=== PATIENT | male | born 1960 | race African-American/Black ===

== ENCOUNTER 2019-11-17 14:30 | Emergency (ER) | payer BC, SELFPAY ==
[2019-11-17 14:35] VITALS: BP 142/77; PULSE 82; RESP 18; TEMP 36.8; O2SAT 99
[2019-11-17 16:10] VITALS: PULSE 89; RESP 18
[2019-11-17] MEDS: ALBUTEROL SULFATE NEB 2.5 MG/0.5 ML INH 5 MG INHALATION (16:10)
[2019-11-17] MEDS: IPRATROPIUM BR 0.02% INH SOLN 0.5 MG/2.5 ML VIAL INHALATION (16:11)
[2019-11-17 16:17] VITALS: PULSE 90; RESP 18
--- NOTE | 2019-11-17 16:27 | ED.URI ---
HPI - URI/Sore Throat General Chief Complaint: Upper Respiratory Infection Stated Complaint: cold sx's Time Seen by Provider: 11/17/19 15:39 Source: patient Mode of arrival: ambulatory Limitations: no limitations History of Present Illness HPI Narrative: This is a 59 year old male that presents to the ER for cold symptoms x 1 week. Reports cough and congestion. Reports he is a smoker and had history of bronchitis. Denies fever, chest pain or shortness of breath. Related Data Allergies Allergy/AdvReac Type Severity Reaction Status Date / Time No Known Allergies Allergy Verified 11/17/19 14:34 Review of Systems Review of Systems: Narrative: CONSTITUTIONAL: Denies fever ENT: Reports rhinorrhea, congestion. Denies sore throat, or otalgia. CARDIOVASCULAR: Denies chest pain RESPIRATORY: Reports cough. Denies dyspnea. All systems reviewed & are unremarkable except as noted in HPI and below PMFSH Social History Social History (Updated 11/17/19 @ 16:52 by Tatianna Almendarez PA-C) Smoking status: Current every day smoker Substance use: never Gender identity (if verbalized by the patient): Male Exam Narrative: Exam Narrative: GENERAL: Well-appearing, well-nourished, and in no acute distress. HEAD: Normocephalic, atraumatic. EYES: EOMI. ENT: Turbinates swollen and pale. Mucous membranes moist. Oropharynx without tonsillar hypertrophy exudate or other lesions. Bilateral TMs pearly [place] non-bulging NECK: Supple. No adenopathy or masses. No carotid bruits or JVD CHEST: Clear to auscultation. No respiratory distress. No wheezes rales or rhonchi HEART: Regular rate and rhythm. No murmur heard. Normal peripheral pulses. EXTREMITIES: Normal range of motion. No edema. SKIN: Warm, dry, no rash. NEURO: No focal deficits. Alert and oriented x3. PSYCH: Normal mood and affect Course Vital Signs Vital signs: Vital Signs Temperature 98.3 F 11/17/19 14:35 Pulse Rate 82 11/17/19 14:35 Respiratory Rate 18 11/17/19 14:35 Blood Pressure 142/77 H 11/17/19 14:35 Pulse Oximetry 99 11/17/19 14:35 Temperature 98.3 F 11/17/19 14:35 Pulse Rate 90 11/17/19 16:17 Respiratory Rate 18 11/17/19 16:17 Blood Pressure 142/77 H 11/17/19 14:35 Pulse Oximetry 99 11/17/19 14:35 MDM - URI/Sore Throat MDM Narrative Medical decision making narrative: Patient presents the emergency department for cough and congestion x1 week. He is afebrile and nontoxic-appearing. Lungs are clear on exam. Influenza screen is negative. Patient reports improvement with nebulizer treatment. He will be sent home with albuterol inhaler and steroids. Patient is to follow-up with his primary care doctor. He was given warnings to return to the ER Lab Data Labs: Influenza A Screen Negative Reference Range: Negative Influenza B Screen Negative Reference Range: Negative Critical Care Time Critical Care Time Critical Care Time: No Discharge Plan Discharge Clinical Impression: Bronchitis Patient Disposition: Home, Self-Care Condition: Stable Instructions: Acute Bronchitis (ED) Additional Instructions: Return to the emergency department for worsening symptoms, or any other concerns Remain well-hydrated, get plenty of rest. Take steroid as prescribed. Albuterol as needed for shortness of breath. Take Tylenol or Motrin [id number] for pain as needed. Flonase for nasal congestion. Zyrtec for runny nose. Lozenges or Chloraseptic spray for sore throat. Follow up with your primary care doctor Prescriptions: New albuterol sulfate 90 mcg/actuation aerosol powdr breath activated 1 inhalation INHALATION Q4-6H PRN (Reason: shortness of breath or wheezing) Qty: 1 RF: 0 methylprednisolone 4 mg tablets,dose pack See Rx Instructions .ROUTE .COMPLEX Qty: 21 RF: 0 Follow-up/Referrals: UNKNOWN,DOCTOR [Primary Care Provider] - 1 Week
== END 2019-11-17 17:11 | disposition home or self-care (01) ==
PROVIDERS: Emergency Provider Emergency Medicine
DX: J40 Bronchitis, not specified as acute or chronic (principal); F17.200 Nicotine dependence, unspecified, uncomplicated
CPT/HCPCS: 87804; 94640; 99283